=== PATIENT | female | born 1995 | race Caucasian/White ===

== ENCOUNTER 2020-06-24 16:47 | Emergency (ER) | payer OTHER ==
[~2020-06-24] VITALS: Ht 165.1 cm; Wt 63.5 kg
[2020-06-24 16:58] VITALS: BP 103/62; Ht 165.1 cm; Wt 63.5 kg
== END 2020-06-24 17:32 | disposition home or self-care (01) ==
LOC: ED 16:47
DX: O9A.211 Injury, poisoning and certain other consequences of external causes complicating pregnancy, first trimester (principal); S39.012A Strain of muscle, fascia and tendon of lower back, initial encounter; Z3A.10 10 weeks gestation of pregnancy; X50.0XXA Overexertion from strenuous movement or load, initial encounter; Y93.89 Activity, other specified; Y92.89 Other specified places as the place of occurrence of the external cause; Y99.8 Other external cause status